=== PATIENT | male | born 1995 | race Caucasian/White ===

== ENCOUNTER → 2020-10-25 08:25 | Outpatient (CLI) | payer OTHER, SELFPAY ==
--- NOTE | 2020-10-25 | DI.RAD.S_ITS ---
PROCEDURE: [place] SHOULDER INJECTION MR/CT LT INDICATIONS: DISLOCATION OF LEFT SHOULDER COMPARISON: None. TECHNIQUE: The indications, alternatives, benefits, risks, and complications of the procedure were explained to the patient. Written informed consent was obtained and placed in the chart. The shoulder was examined fluoroscopically and a site for needle placement chosen for entry into the glenohumeral joint from an anterior approach. The skin was prepped and draped in a sterile fashion, and 1% lidocaine infiltrated from skin down to joint capsule. A spinal needle was inserted into the glenohumeral joint, and a small amount of iodinated contrast media injected to confirm intra-articular placement of the needle tip. This was followed by approximately 12 mL dilute solution of a gadolinium containing MR contrast agent. The needle was removed and a dressing was applied. The patient was given postprocedural instructions and sent to the MR suite for MR imaging. FINDINGS: A single fluoroscopic spot image demonstrates intra-articular location of injected iodinated contrast. IMPRESSION: Successful fluoroscopically guided administration of dilute Gadolinium solution into the shoulder joint for MR arthrogram. Dictated by: Octavio Cuellar M.D. on 10/25/2020 at 9:47 Approved by: Octavoi Cuellar M.D. on 10/25/2020 at 9:47
--- NOTE | 2020-10-25 | DI.MRI.S_ITS ---
PROCEDURE: MR SHOULDER LT W CON INDICATIONS: DISLOCATION OF LEFT SHOULDER TECHNIQUE: After the administration of 12 mL of dilute intra-articular Gadolinium contrast, oblique coronal T1 and T2 spin echo with fat saturation, oblique sagittal T1 spin echo with and without fat saturation, oblique sagittal T2 fast spin echo with fat saturation, axial T1 spin echo with fat saturation through the shoulder. COMPARISON: [facility], , [place] SHOULDER INJECTION MR/CT LT, 10/25/2020, 9:50. FINDINGS: Image quality: Excellent. Rotator cuff: There is low-grade tendinosis of the supraspinatus tendon. No contrast extravasation into the sub acromial/subdeltoid bursa. The infraspinatus and subscapularis tendons appear intact throughout. No rotator cuff muscle atrophy on sagittal images. Bones and bursae: No bone marrow contusions or fractures. No acromioclavicular joint degeneration. The acromion demonstrates conventional anatomy, without an os acromiale. Capsule and soft tissues: The labrum and glenohumeral ligaments appear intact. The long head of the biceps tendon demonstrates normal location and morphology. The rotator interval appears normal, without fibrosis. The coracohumeral ligament is of normal thickness. No intra-articular bodies. IMPRESSION: 1. Low-grade tendinosis of the supraspinatus tendon. 2. No labral tear. Dictated by: Octavio Cuellar M.D. on 10/25/2020 at 10:00 Approved by: Octavio Cuellar M.D. on 10/25/2020 at 11:16
== END ==
DX: S43.005A Unspecified dislocation of left shoulder joint, initial encounter (principal); X58.XXXA Exposure to other specified factors, initial encounter
CPT/HCPCS: 23350; 73222; 77002

== ENCOUNTER → 2020-11-23 18:12 | Outpatient (CLI) | payer OTHER, SELFPAY ==
--- NOTE | 2020-11-23 | DI.MRI.S_ITS ---
PROCEDURE: MR BRACHIAL PLEXUS WITHOUT CON COMPARISON: [facility], MR, MR SHOULDER LT W CON, 10/25/2020, 9:17. INDICATIONS: BRACHIAL PLEXUS DISORDER FINDINGS: The following imaging sequences were obtained: Large azews-ru-[id number] T1 weighted spin echo axial, large [id number]-ab-[id number] T2 weighted turbo spin echo, T1 weighted axial and coronal images of the left brachial plexus, STIR images of the left brachial plexus in the sagittal, coronal and axial planes, and T1 weighted images of the left brachial plexus in the sagittal plane. No contrast was given. Imaging quality: Diagnostic The brachial plexus demonstrates an unremarkable appearance, without abnormal signal or edema along its course. No masses can be seen to the limits of this noncontrast study. No pseudomeningoceles can be seen involving the cervical spine. The surrounding soft tissues are unremarkable, without masses or enlarged lymph nodes. No significant bony abnormality is detected. IMPRESSION: Non-contrast brachial plexus MRI study within normal limits. Dictated by: Juan Manuel Maldonado M.D. on 11/24/2020 at 8:41 Approved by: Juan Manuel Maldonado M.D. on 11/24/2020 at 8:43
== END ==
PROVIDERS: Referring Provider Orthopaedic Surgery; Visit Provider Orthopaedic Surgery
DX: G54.0 Brachial plexus disorders (principal)
CPT/HCPCS: 71550

== ENCOUNTER → 2021-05-09 17:28 | Outpatient (CLI) | payer OTHER, SELFPAY ==
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
== END ==
PROVIDERS: Referring Provider Orthopaedic Surgery; Visit Provider Orthopaedic Surgery
DX: M25.332 Other instability, left wrist (principal); M65.832 Other synovitis and tenosynovitis, left forearm
CPT/HCPCS: 73221

== ENCOUNTER → 2021-09-21 07:49 | Outpatient (CLI) | payer OTHER, SELFPAY | PROVIDERS: Visit Provider Psychiatry & Neurology Neurology | DX: M79.601 Pain in right arm (principal) | CPT/HCPCS: 95886; 95910 ==

== ENCOUNTER → 2021-10-26 14:41 | Outpatient (CLI) | payer OTHER, SELFPAY ==
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
== END ==
PROVIDERS: Referring Provider Psychiatry & Neurology Neurology; Visit Provider Psychiatry & Neurology Neurology
DX: M54.2 Cervicalgia (principal)
CPT/HCPCS: 71552